=== PATIENT | female | born 1995 | race Caucasian/White ===

== ENCOUNTER 2018-05-14 15:56 | Outpatient (REF) | payer MEDICAID, SELFPAY ==
[2018-05-16 15:46] LABS: Chlamydia Result Negative; GC Result Negative; Specimen Description CERVIX
== END 2018-05-14 16:16 ==
LOC: LBN 15:56
PROVIDERS: PCP Nurse Practitioner Family; Visit Provider Obstetrics & Gynecology Gynecology
DX: Z11.3 Encounter for screening for infections with a predominantly sexual mode of transmission (principal)
CPT/HCPCS: 87491; 87591

== ENCOUNTER 2019-05-27 15:47 | Outpatient (CLI) | payer MEDICARE, MEDICAID, SELFPAY ==
[2019-05-28 15:29] LABS: Chlamydia Result Negative (Negative)
[2019-05-28 15:49] LABS: GC Result Negative (Negative)
== END 2019-05-27 16:07 ==
PROVIDERS: PCP Nurse Practitioner Family; Visit Provider Obstetrics & Gynecology Gynecology
DX: Z11.3 Encounter for screening for infections with a predominantly sexual mode of transmission (principal)
CPT/HCPCS: 87491; 87591

== ENCOUNTER 2020-05-27 16:41 | Outpatient (REF) | payer MEDICARE, MEDICAID, SELFPAY ==
--- NOTE | 2020-05-27 16:30 | PAPFT_PTH ---
PATIENT: Luzmaria Slater LOC: [facility] U#:[id number] AGE/SX: 24/F ROOM: RE05/27/[address]: Radha Francois : 1995 BED: DIS: 05/27/2020 SPEC #: [id number] RECD: 05/27/20 18:05 STATUS: JAYLIN REFarzana #: [id number] JACOB: 05/27/20 16:[address]: Radha Francois DEPT: [facility] Cytology RECD BY: Ernestina Grey ENTERED: 05/27/20 18:06 SP TYPE: PAPFT OTHR DR: Vicenta Post, KAYA Tissues: 1 - CX/ENDOCX FOR PAP SMEARS Procedures: PAP THIN PREP/UVM Screening Comments: [id number] ([id number] [facility])
== END 2020-05-27 17:01 ==
LOC: LBN 16:41
PROVIDERS: PCP Nurse Practitioner Family; Visit Provider Obstetrics & Gynecology Gynecology
DX: Z12.4 Encounter for screening for malignant neoplasm of cervix (principal)
CPT/HCPCS: 88142

== ENCOUNTER 2020-05-30 20:51 | Emergency (ER) | payer MEDICARE, MEDICAID, SELFPAY ==
[2020-05-30 21:00] VITALS: BP 125/71; PULSE 76; RESP 16; TEMP 36.1; O2SAT 99
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
[2020-05-30] MEDS: Ibuprofen 600 MG TAB PO (21:14)
--- NOTE | 2020-05-30 21:25 | DI.RAD_ITS ---
EXAM: XR FOOT LT COMPLETE CLINICAL HISTORY: pain s/p trauma. TECHNIQUE: 2D digital imaging was performed. COMPARISON: No exams were available for comparison FINDINGS: BONES: No acute fracture is present. No bony destructive lesion is seen. JOINTS: No dislocation present. SOFT TISSUE: Normal. IMPRESSION: Unremarkable radiographs of the left foot. DATA REPOSITORY: RADIATION DOSE DELIVERED:
--- NOTE | 2020-05-30 21:34 | DI.VRAD_ITS ---
PROCEDURE INFORMATION: Exam: XR Left Foot Complete Exam date and time: 05/30/2020 9:24 PM Age: 24 years old Clinical indication: Injury or trauma; Other: meat dropped out of freezer and fell in foot. ; Blunt trauma; Left; Injury date: 05/30/20 TECHNIQUE: Imaging protocol: XR Left foot. Views: 3 or more views. COMPARISON: No relevant prior studies available. FINDINGS: There is no evidence of fracture. The joint spaces are well maintained. There is no bony destruction. IMPRESSION: No evidence of fracture. Dictated and Authenticated by: Elmo Duff MD. Ordering:AISHA Hi MD
[2020-05-30 21:43] VITALS: BP 125/71; PULSE 76; RESP 16; TEMP 36.1; O2SAT 99
== END 2020-05-30 21:43 | disposition home or self-care (01) ==
PROVIDERS: Emergency Provider Emergency Medicine; PCP Nurse Practitioner Family
DX: S90.122A Contusion of left lesser toe(s) without damage to nail, initial encounter (principal); W20.8XXA Other cause of strike by thrown, projected or falling object, initial encounter
CPT/HCPCS: 99283; 73630

== ENCOUNTER 2020-06-19 02:11 | Outpatient (CLI) | payer MEDICARE, MEDICAID, SELFPAY ==
--- NOTE | 2020-06-19 | DI.CT_ITS ---
EXAM: CT FACIAL WO CLINICAL HISTORY: LT NECK AND LT MASTOID PAIN,ZYGOMATIC ARCH LT SIDE FX,LT ORBIT FX,S02.85XA,. TECHNIQUE: Imaging Protocol: Axial computed tomography images with coronal and sagittal reformatted images were created and reviewed CONTRAST MATERIAL: Noncontrast COMPARISON: CT HEAD FACIALS WO from 03/04/2017 FINDINGS: Facial Bones: There has been previous surgery repair of the left-sided orbital fracture on the previo us exam. There is mild deformity of the orbital floor. There is no evidence of inferior rectus musc le entrapment. The globes appear intact. There are no bony erosions. The sinuses are clear. No ab normalities seen in the visualized portions of the brain. IMPRESSION: Previous surgery for left-sided orbit and maxillary sinus fractures. No acute abnormality. RADIATION DOSE DELIVERED: Total DLP DATA REPOSITORY: All CT scans at this facility are submitted to the National Radiology Data Registry (NRDR) Dose Index Registry (DIR) with the [employer] (ACR). RADIATION OPTIMIZATION: All CT scans at this facility use at least one of these dose optimization te chniques: automated exposure control; mA and/or kV adjustment per patient size (includes targeted exa ms where dose is matched to clinical indication); or iterative reconstruction.
--- NOTE | 2020-06-19 08:09 | DI.CT_ITS ---
EXAM: CT CERVICAL SPINE WO CLINICAL HISTORY: L neck pain and L mastoid pain,ZYGOMATIC FX LT SIDE,LT ORBIT FX,S02.40FS,S0. TECHNIQUE: Imaging Protocol: Axial computed tomography images with coronal and sagittal reformatted images were created and reviewed CONTRAST MATERIAL: Noncontrast COMPARISON: No exams were available for comparison FINDINGS: Bones: No fracture or dislocations are seen. The alignment of the cervical spine is normal including the cervicovertebral junction and cervicothoracic junction. C2-3: Normal. C3-4: Normal. C4-5: Normal. C5-6: Normal. C6-7: Normal. C7-T1: Normal. Soft Tissues: The soft tissues of the neck are unremarkable. No large disk herniations are identified . Parotid, submandibular and thyroid glands are unremarkable. IMPRESSION: Normal CT scan of the cervical spine. RADIATION DOSE DELIVERED: Total DLP DATA REPOSITORY: All CT scans at this facility are submitted to the National Radiology Data Registry (NRDR) Dose Index Registry (DIR) with the [employer] (ACR). RADIATION OPTIMIZATION: All CT scans at this facility use at least one of these dose optimization te chniques: automated exposure control; mA and/or kV adjustment per patient size (includes targeted exa ms where dose is matched to clinical indication); or iterative reconstruction.
== END 2020-06-19 02:31 ==
PROVIDERS: PCP Nurse Practitioner Family; Visit Provider Obstetrics & Gynecology Gynecology
DX: S02.40FS Zygomatic fracture, left side, sequela (principal); M54.2 Cervicalgia; H74.8X2 Other specified disorders of left middle ear and mastoid
CPT/HCPCS: 70486; 72125

== ENCOUNTER 2021-05-20 02:39 | Outpatient (CLI) | payer OTHER, MEDICAID, SELFPAY ==
[2021-05-21 09:23] LABS: Calculated LDL 91 mg/dL (<100); Cholesterol 149 mg/dL (<200); Glucose 101 mg/dL (74-106); HCG Quant, Pregnancy < 1 mIU/mL (1-3); HDL Cholesterol 37 mg/dL (40-60); Triglyceride 109 mg/dL (<150)
== END 2021-05-20 02:40 | disposition home or self-care (01) ==
LOC: LBO 02:40
PROVIDERS: PCP Nurse Practitioner Family; Visit Provider Nurse Practitioner Women's Health
DX: E66.09 Other obesity due to excess calories (principal); Z13.220 Encounter for screening for lipoid disorders; Z13.1 Encounter for screening for diabetes mellitus
CPT/HCPCS: 36415; 80061; 82947; 84702

== ENCOUNTER 2022-05-27 01:19 | Outpatient (CLI) | payer OTHER, MEDICAID, SELFPAY ==
--- OUTSIDE RECORDS SUMMARY | 2022-05-27 01:22 | XMS_ITS | Encounter Summary ---
:1995 Author Organization [facility] [place] [address] Care Team Providers Name Role Phone Vicenta Post KAYA Primary Care Provider Reason for Visit Reason Comments Follow Up Surgery s/p facial fx repair dos 02/09 Encounter Details Date Type Department Care Team Description 04/19/2017 Office Visit Plastic Surgery at Rudolph Orozco MD Closed fracture of orbit with routine he aling, subsequent encounter; [facility] Open fracture of left orbit with routine healing, subsequent encounter; [facility] Open fracture of left zygomatic arch wit h routine healing, subsequent encounter Drive PLASTIC SURGERY [place] [id number] [phone] Social History Tobacco Use Types Packs/Day Years Used Date Smoking Tobacco: Every Day Cigarettes 0.5 Smokeless Tobacco: Never Tobacco Cessation: Ready to Quit: Yes Alcohol Use Standard Drinks/Week Comments No 0 (1 standard drink = 0.6 oz pure alcoho l) Sex Assigned at Date Recorded Not on file documented as of this encounter Progress Notes Rudolph Orozco MD - 04/19/2017 2:45 PM EDT Plastic Surgery Post Op Note Reason for visit: F/U status post procedure Date of surgery: 03/09/17 Procedure(s): Open treatment of a malar fracture through 3 separate approaches with internal fixation of multiple approaches. Open treatment of orbital floor blowout fracture with periorbital approach with delta resorbable plate posterior. Complications: None reported HPI: Pt reports that she is doing ok. She reports some blurry vision but has a prescription for glasses. She denies diplopia. She has no difficulty eating. Examination: Patient is alert, conversant, comfortable, ambulating EOMI. No diplopia. Hardware palpable Resolving ecchymosis Occlusion is stable Malar position symmetric Impression: Luzmaria Slater is a 21 y.o. female who was seen today for follow-up after the above procedure. Please see the operative note for details. We discussed that her nerve pain may take up to 1 year to resolve. She can expect cold intolerance this winter from her resorbable plates. Plan: 1. Follow up Venita GONZALEZ am acting as scribe for Dr. Orozco. All work documented was performed by Dr. Orozco. ???I performed the above scribed service and agree with the accuracy of the note?? Rudolph Orozco MD documented in this encounter Plan of Treatment Not on filedocumented as of this encounter Visit Diagnoses Diagnosis Closed fracture of orbit with routine he aling, subsequent encounter Open fracture of left orbit with routine healing, subsequent encounter Open fracture of left zygomatic arch wit h routine healing, subsequent encounter documented in this encounter Care Teams Senior Java Web Developer Relationship Specialty Start Date End Date Vicenta Post APRN PCP - General Family Medicine 03/07/[address] [place] [address] documented as of this encounter
--- OUTSIDE RECORDS SUMMARY | 2022-05-27 01:22 | XMS_ITS | Encounter Summary ---
:1995 Author Organization [facility] [place] [address] Care Team Providers Name Role Phone SincereEleni tejadakobe Potter APRN Primary Care Provider Reason for Visit Reason Comments Follow Up Surgery s/p facial fx repair dos 02/09 Encounter Details Date Type Department Care Team Description 03/16/2017 [facility] Armida Howe, [place] [address] PLASTIC SURGERY [place] [address] (Wo rk) Social History Tobacco Use Types Packs/Day Years Used Date Smoking Tobacco: Former Cigarettes 0.5 Smokeless Tobacco: Never Comments: quit smoking 01/23 Alcohol Use Standard Drinks/Week Comments No 0 (1 standard drink = 0.6 oz pure alcoho l) Sex Assigned at Date Recorded Not on file documented as of this encounter Patient Instructions Patient InstructionsArmida Howe APRN - 03/16/2017 9:20 AM EDT 1. Follow up: 03/21/[address] Orozco 2. Keep head elevated at all times 3. No smoking 4. Contact our office if you develop any fevers, chills, redness or thick drainage. documented in this encounter Progress Notes Armida Howe APRN - 03/16/2017 9:20 AM EDT Plastic Surgery Post Op Note Reason for visit: F/U status post procedure Date of surgery: 03/09/17 Procedure(s): Open treatment of a malar fracture through 3 separate approaches with internal fixation of multiple approaches. Open treatment of orbital floor blowout fracture with periorbital approach with delta resorbable plate posterior. Complications: None reported HPI: Pt reports that she is doing ok but does report that her bite seems off. She states that she has been spitting up blood. She denies double vision but does report some blurriness when looking out her left eye. Patient reports that she has been smoking since her surgical procedure. Examination: Patient is alert, conversant, comfortable, ambulating EOMI. No diplopia. Infraorbital incision: CDI, healing well. Sutures removed today. Intraoral incision with significant amount of serous drainage. No purulence. No erythema, no evidence of cellulitis. Impression: Luzmaria Slater is a 21 y.o. female who was seen today for follow-up after the above procedure. Please see the operative note for details. She has significant drainage from her intraoral incision. Will monitor closely. Plan: 1. Follow up: 03/21/[address] Orozco 2. Keep head elevated at all times 3. No smoking 4. Contact our office if you develop any fevers, chills, redness or thick drainage. I, Pallavi Cavazos, am acting as scribe for Armida Howe APRN. All work documented was performed by Armida Howe APRN ???I performed the above scribed service and agree with the accuracy of the note?? ARMIDA HOWE APRN documented in this encounter Plan of Treatment Not on filedocumented as of this encounter Visit Diagnoses Diagnosis Surgery follow-up Follow-up examination, following unspeci fied surgery documented in this encounter Care Teams Superintendent Car Construction Relationship Specialty Start Date End Date Vicenta Post APRN PCP - General Family Medicine 03/07/[address] [place] [address] documented as of this encounter
--- OUTSIDE RECORDS SUMMARY | 2022-05-27 01:22 | XMS_ITS | Encounter Summary ---
:1995 Author Organization [facility] [place] [address] Care Team Providers Name Role Phone Dominik Seay MD, Mark Primary Care Provider Reason for Visit Reason Comments Family History Encounter Details Date Type Department Care Team Description 03/06/2014 Office Visit Obstetrics and [facility] [place], Testing of female for genetic disease carrier status (Primary Dx); Gynecology at [facility] Encounter for genetic counseling [facility] [address] [place], [place] OBSTETRICS & [phone] GYNECOLOGY [phone] [place], [place] [address] Social History Tobacco Use Types Packs/Day Years Used Date Smoking Tobacco: Every Day Cigarettes 0.5 Alcohol Use Standard Drinks/Week Comments No 0 (1 standard drink = 0.6 oz pure alcoho l) Sex Assigned at Date Recorded Not on file documented as of this encounter Progress Notes [facility] [place], [place] - 03/06/2014 1:54 PM EDT GENETIC COUNSELING NOTE Luzmaria Slater was referred to the Diagnosis Program by Cornelia Flores CNM. I met with Luzmaria for a 40 minute genetic counseling visit. She was accompanied to the visit by her mother, Maile. Chief Complaint Patient presents with ??? Family History History of Present Complaint Luzmaria reports that the father of her baby, Ryan Georges, is a carrier of alpha-1 antitrypsin deficiency. He was tested at age 14 because his mother had the disorder, but he is unable to locate the report of his results. His mother had COPD and of an infection at age 46. Ryan's maternal unclestacio has alpha-1 antitrypsin deficiency. Past Medical History Diagnosis Date ??? Anxiety Family History Problem (# of Occurrences) Relation (Name,Age of Onset) Anxiety Disorder (1) Mother Asthma (4) Mother, Nephew, Nephew, Nephew Attention Deficit Disorder (1) Father of Baby Emphysema (1) Maternal Grandfather Genetic Disorder (3) Father of Baby: carrier of alpha-1 antitrypsin deficiency, Father of Baby Relative: mother: alpha-1 antitrypsin deficiency, Father of Baby Relative: maternal uncle: alpha-1 antitrypsin deficiency Heart Defect (1) Mother: heart murmur due to congenital heart disease, resolved spontaneously Learning Disorder (1) Mother Mental Illness (2) Maternal Grandfather, Maternal Grandmother Tuberculosis (1) Maternal Grandfather The reported family history was otherwise unremarkable for intellectual disability, congenital anomalies, recurrent loss, or known genetic conditions. A pedigree was obtained and will be scanned into Luzmaria's electronic medical record. Consanguinity is denied. OB History Grav Para Term Abortions TAB SAB Ect Mult Living 1 Patient's last menstrual period was 10/11/2013. Estimated Date of Delivery: 07/23/2014 based on ultrasound dating (9w2d on 2013) Assessment 18 y.o. female currently at 20w1d gestation whose reproductive partner is reported to be of a carrier for alpha-1 antitrypsin deficiency. Discussion Alpha-1 antitrypsin deficiency (AATD) is an autosomal recessive disorder that is characterized by anincreased risk for chronic obstructive pulmonary disease in adults and liver disease in children andadults. Liver abnormalities develop in only a small portion of children with AATD. The most common manifestation of AATD-associated liver disease is jaundice, with hyperbilirubinemia and raised serum aminotransferase levels in the early days and months of life. Individuals with AATD should avoid smoking (both active and passive) and occupations with exposure to environmental pollutants and should minimize their exposure to alcohol. Luzmaria would like to have carrier testing for AATD to determine if her baby is at risk for this disorder. This will be done via targeted mutation analysis for the most common SERPINA1 pathogenic alleles, which are designated as S (mild deficiency) and Z (severe deficiency). If Luzmaria is found to be a carrier of one of these alleles, then we would expect a 25% risk for her baby to have AATD, although obtaining Ryan's previous test results or retesting him would be important for accurate risk assessment. I provided Luzmaria with a brochure from the [employer]. Plan Luzmaria will have her blood drawn for AATD carrier testing today. I will call her when the results are available. documented in this encounter Miscellaneous Notes Miscellaneous - Provider, Scanning - 05/01/2014 2:17 PM EDT Miscellaneous - Provider, Scanning - 05/01/2014 1:14 PM EDT documented in this encounter Plan of Treatment Not on filedocumented as of this encounter Visit Diagnoses Diagnosis Testing of female for genetic disease ca rrier status - Primary Encounter for genetic counseling Genetic counseling documented in this encounter Care Teams Ginseng Farmer Relationship Specialty Start Date End Date Hernandez Lehman MD PCP - General 06/01/10 03/06/17 [place] [address] documented as of this encounter
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
--- OUTSIDE RECORDS SUMMARY | 2022-05-27 01:22 | XMS_ITS | Encounter Summary ---
:1995 [place] [address] Care Team Providers Name Role Phone Eleni Postkobe Potter APRN Primary Care Provider Reason for Visit Auth/Cert Specialty Diagnoses / Procedures Referred By Contact Refer red To Contact Diagnoses Orbital fracture Rudolph Orozco MD Procedures Orbital fracture [facility] PLASTIC SURGERY [place], [place] [address] Phone: Fax: Referral ID Status Reason Start Date Expiration Date Visits Requ ested Visits Authorized [id number] 03/07/2017 1 1 Encounter Details Date Type Department Care Team Description 03/09/2017 Anesthesia Event [facility] Oliverio Amador MD [facility] [place] [address] [facility] at Mookie Holm MD [facility] [place] [address] [facility] [place] [address] Anesthesia Record Procedure Summary Procedure Name Responsible Anesthesia Start Anesthesia Stop Anesthesiologist Time Time OPEN TREATMENT Dayami Amador MD 03/09/17 1558 03/09/17 18 42 COMPLICATED FX(S) MALAR AREA, W/ INT FIX & MULT. APPROACHES (WRVU 16.77) (Left: Face) Events Date Time Event Comment 03/09/2017 1531 1558 AN Verify 1558 Start 1558 An Start Data 1604 An Induction 1607 An Intubation 1627 Anesthesia Ready 1632 Procedure Start [address] 1829 Extubation/LMA Out 1831 an stop data 1842 Recovery or ICU Handoff Patient care was transferred to the destination unit staff after review of the patient's medica l history, current anesthetic/surgi alivia status and plan, according to the Provider Handoff Checklist. Pt to PACU. On 6 L FM. Oxygenating well with 90mm Oral airway in place. VS at baseline. Report to PaCU R N 1842 Stop Name Total Midazolam 2 mg fentaNYL 100 mcg IV Lidocaine 20 mg Propofol 200 mg Rocuronium 50 mg Ondansetron 8 mg Dexamethasone 8 mg Neostigmine 3 mg Glycopyrrolate 0.4 mg Propofol INF 1,135.6 mg Dexmedetomidine 24 mcg ceFAZolin 2 g HYDROmorphone 1.6 mg lactated Ringers infusion 1,000 mL 1,000 mL Agents Name O2 Air N2O Sevoflurane (et) Blood No blood administrations on file. Lines, Drains, and Airways Type Details Placement Removal PIV 03/09/17; 1501; metacarpal 03/09/17 1501 by Bind er, 03/10/17 0939 by vein (top of hand), right; KAYA Kolb, Lorelei Lambert, RN [id number] catheter system; 20 gauge; yesenia IGLESIAS; distraction, intradermal injection; 03/10/17; 0939 ETT Mask Ventilation: Easy (1); 03/09/17 1607 by Geovanni rage, 03/09/17 1829 by ETT Type: Cuffed; ETT Size: Chelsea C Geovannir age, Chelsea C 7.5 mm; Olivas Blade: 2; Notes: Asleep, Stylette, Pre-O2; Attempts: 1; Laryngoscopy Grade: 1; ETT Placement Verified By: Auscultation, Capnometry, Visual; Inserted by: COURTNEY Christianson Incision 03/09/17; 1630; orbital 03/09/17 1630 by 2 1715 by region; 03/07/22 (Connie Mariee, RN Bell, Dierdre L cleanup utility RA#[id number]); 1715 (LDA cleanup utility RA#[id number]) Incision 03/09/17; 1645; gum (intra 03/09/17 1645 by 02/08 03/31 1715 by oral); 03/07/22 (LDA cleanup Connie Hood RN Muller Ramezstella Graf utility RA#[id number]); 1715 (LDA cleanup utility RA#[id number]) documented in this encounter Social History Tobacco Use Types Packs/Day Years Used Date Smoking Tobacco: Former Cigarettes 0.5 Smokeless Tobacco: Never Comments: quit smoking 01/23 Alcohol Use Standard Drinks/Week Comments No 0 (1 standard drink = 0.6 oz pure alcoho l) Sex Assigned at Date Recorded Not on file documented as of this encounter OR Notes Anesthesia Postprocedure Evaluation - Dayami Amador MD - 03/09/2017 7:35 PM EDT [facility] Department of Anesthesiology Post-procedure Note Patient: Luzmaria Slater Procedure Summary Date Anesthesia Start Anesthesia Stop Room / Location 03/09/17 0733 [address] [facility] CT PROCEDURE ROOM / [facility] Procedure Diagnosis Surgeon Responsible Provider OPEN TREATMENT COMPLICATED FX(S) MALAR AREA, W/ INT FIX & MULT. APPROACHES (WRVU 16.77) (Left Face); OPEN TREATMENT OF ORBITAL FLOOR BLOWOUT FX, PERIORBITAL APPROACH, W/ ALLOPLASTIC OR OTHER IMPLANT (WRVU 11.23) (Left Face); OPEN TREATMENT OF ORBITAL FLOOR BLOWOUT FX, PERIORBITAL APPROACH, W/ BONE GRAFT (WRVU 14.7) (Left Face); CANTHOTOMY (WRVU 1.27) (Left Eye) (Orbital fracture) Rudolph Orozco MD Schroeck, Hedwig, MD All Anesthesia Providers: Anesthesiologist: Dayami Amador MD SPARE PARTS CLERK: Daria Smith CRNA Student Nurse Card Player: Chelsea Putnam (1hr) Vitals: BP 128/64 (03/09/171929) Temp 36.7 ??C (98.1 ??F) (03/09/171836) Pulse 100 (03/09/171929) Resp 12 (03/09/171929) SpO2 97 % (03/09/171929) Patient Location: PACU/[facility] Level of Consciousness: Conscious but Sleepy Pain Management: Satisfactory Analgesia PONV: None Cardiovascular Status: At Baseline and Hemodynamically Stable Respiratory Status: Stable Respiratory Status and Supplemental O2 (NC or FM) Postoperative Fluid Status: Intravascular EUvolemia Possible Anesthetic Complications: NONE apparent at time of evaluation Final Primary Anesthesia Type: General (The anesthetic type performed was the same as planned.) Comments: DAYAMI AMADOR MD Anesthesia Preprocedure Evaluation - Dayami Amador MD - 03/08/2017 5:14 PM EDT Pre-Anesthesia Evaluation for: Luzmaria Slater a 21 y.o. female. Procedure(s): OPEN TREATMENT COMPLICATED FX(S) MALAR AREA, W/ INT FIX & MULT. APPROACHES (WRVU 16.77) OPEN TREATMENT OF ORBITAL FLOOR BLOWOUT FX, PERIORBITAL APPROACH, W/ ALLOPLASTIC OR OTHER IMPLANT (WRVU 11.23) OPEN TREATMENT OF ORBITAL FLOOR BLOWOUT FX, PERIORBITAL APPROACH, W/ BONE GRAFT (WRVU 14.7) CANTHOTOMY (WRVU 1.27) Patient Active Problem List Diagnosis ??? Zygomatic fracture ??? Open fracture of left orbit Past Medical History: Diagnosis Date ??? Anxiety No past surgical history on file. Social History Substance Use Topics ??? Smoking status: Former Smoker Packs/day: 0.50 Types: Cigarettes ??? Smokeless tobacco: Never Used Comment: quit smoking 01/23 ??? Alcohol use No History Drug Use No Comment: former marijuana use No Known Allergies Medications: MAR and/or home medications have been reviewed. Physical Exam: There were no vitals filed for this visit. There is no height or weight on file to calculate BMI. Airway Assessment: Mallampati: II TM distance: >3 FB Neck ROM: full Mouth opening somewhat limited by swelling/pain. Can move mandible forward easily. Cardiovascular Assessment: cardiovascular exam normal Pulmonary Assessment: pulmonary exam normal Dental Assessment: - normal exam Misc Assessment: IV access: Peripheral line Anesthesia Plan: ASA 2 general, with a(n) intravenous induction Luzmaria Slater is a 83.7kg 21 y.o. female with a hx significant for anxiety and recent facial trauma with facial fractures involving left ZMC and orbital floor presenting for ORIF with Dr. Orozco: Anesthesia Hx: None on file NPO status: adequate Denies h/o URI/RAD/GERD. Does get motion sick Pt activity level prior to surgery/admission to hospital: METs > 4 Patient declines testing. The largely unknown but potential sequelae of anesthesia on a were discussed including loss and teratogenic effects. Plan is for GA with ETT (oRAE), antiemetics, propofol infusion, standard ASA monitors, and adequate IV access. Region - Other Informed Consent: Anesthetic plan and risks discussed with patient and mother. Plan discussed with SPARE PARTS CLERK and attending. PAT Staff Note documented in this encounter Plan of Treatment Not on filedocumented as of this encounter Visit Diagnoses Not on filedocumented in this encounter Administered Medications Inactive Administered Medications - up to 3 most recent administrations Medication Order MAR Action Action Date Dose Rate Site ceFAZolin (ANCEF) 1g in dextrose 5% Given 03/09/2017 4:15 PM EDT 2 g 50mL PRN, Starting on Kate 03/09/17 at 1615, Until Kate 03/09/17 at 1842, Administer over 30 Minutes, Anesthesia Intra-op dexamethasone (DECADRON) injection Given 03/09/2017 4:20 PM EDT 8 mg PRN, Starting on Kate 03/09/17 at 1620, Until Kate 03/09/17 at 1842, Anesthesia Intra-op, Routine dexmedetomidine (PRECEDEX) injection Given 03/09/2017 4:38 PM EDT 8 mcg PRN, Starting on Kate 03/09/17 at 1612, Until Kate 03/09/17 at 1842, Anesthesia Intra-op, Routine Given 03/09/2017 4:15 PM EDT 8 mcg Given 03/09/2017 4:12 PM EDT 8 mcg fentaNYL 50 mcg/mL multi-dose injection Given 03/09/2017 4:03 PM EDT 50 mcg PRN, Starting on Kate 03/09/17 at 1600, Until Kate 03/09/17 at 1842, Pain, Anesthesia Intra-op, Routine Given 03/09/2017 4:00 PM EDT 50 mcg glycopyrrolate (ROBINUL) multi-dose inje ction Given 03/09/2017 6:06 PM EDT 0.4 mg PRN, Starting on Kate 03/09/17 at 1806, Until Kate 03/09/17 at 1842, Anesthesia Intra-op, Routine HYDROmorphone (DILAUDID) injection Given 03/09/2017 5:27 PM EDT 0.4 mg PRN, Starting on Kate 03/09/17 at 1635, Until Kate 03/09/17 at 1842, Pain, Anesthesia Intra-op, Routine Given 03/09/2017 4:51 PM EDT 0.6 mg Given 03/09/2017 4:35 PM EDT 0.6 mg lactated Ringers infusion 1,000 mL New Bag 03/09/2017 6:14 PM EDT 1,000 mL, at 100 mL/hr, Intravenous, CONTINUOUS, Starting on Kate 03/09/17 at 1500, Until Kate 03/09/17 at 2217, Day of Surgery (Day of Procedure) New Bag 03/09/2017 3:58 PM EDT New Bag 03/09/2017 3:02 PM EDT 1,000 mLs 100 mL/hr lidocaine (PF) (XYLOCAINE) 100 mg/5 mL (2 %) Given 7 4:04 PM EDT 20 mg injection PRN, Starting on Kate 03/09/17 at 1604, Until Kate 03/09/17 at 1842, Anesthesia Intra-op, Routine midazolam (PF) (VERSED) 1 mg/mL multi-dose Given 03/09/2017 3:58 PM EDT 2 mg injection PRN, Starting on Kate 03/09/17 at 1558, Until Kate 03/09/17 at 1842, Sleep, Anesthesia Intra-op, Routine neostigmine (BLOXIVERZ) injection Given 03/09/2017 6:06 PM EDT 3 mg PRN, Starting on Kate 03/09/17 at 1806, Until Kate 03/09/17 at 1842, Anesthesia Intra-op, Routine ondansetron (ZOFRAN) injection Given 03/09/2017 5:45 PM EDT 8 mg PRN, Starting on Kate 03/09/17 at 1745, Until Kate 03/09/17 at 1842, Nausea, Anesthesia Intra-op, Routine propofol (DIPRIVAN) 10 mg/mL bolus injection Given 4:04 PM EDT 200 mg (Anesthesia) PRN, Starting on Kate 03/09/17 at 1604, Until Kate 03/09/17 at 1842, Anesthesia Intra-op propofol (DIPRIVAN) Rate/Dose 03/09/2017 5:50 100 mcg/kg/min 50.1 mL /hr infusion Change PM EDT CONTINUOUS PRN, Starting on Kate 03/09/17 at 1610, Until Kate 03/09/17 at 1842, Anesthesia Intra-op, Routine Rate/Dose Change 03/09/2017 5:31 PM EDT 125 mcg/kg/min 62.6 mL/hr Rate/Dose Change 03/09/2017 5:02 PM EDT 150 mcg/kg/min 75.2 mL/hr rocuronium (ZEMURON) multi-dose injectio n Given 03/09/2017 4:06 PM EDT 50 mg PRN, Starting on Kate 03/09/17 at 1606, Until Kate 03/09/17 at 1842, Anesthesia Intra-op, Routine documented in this encounter Care Teams Manager Building Relationship Specialty Start Date End Date Vicenta Post APRN PCP - General Family Medicine 03/07/17 [facility] [place] [address] documented as of this encounter
--- OUTSIDE RECORDS SUMMARY | 2022-05-27 01:22 | XMS_ITS | Encounter Summary ---
:1995 Author Organization [facility] [place] [address] Care Team Providers Name Role Phone Dominik Seay MD, Mark Primary Care Provider Encounter Details Date Type Department Care Team Description 03/04/2017 Hospital Encounter Radiology [facility] [place] [address] GENERAL SURGERY [phone] [place] [id number] (Wo rk) Social History Tobacco Use Types Packs/Day Years Used Date Smoking Tobacco: Every Day Cigarettes 0.5 Alcohol Use Standard Drinks/Week Comments No 0 (1 standard drink = 0.6 oz pure alcoho l) Sex Assigned at Date Recorded Not on file documented as of this encounter Medications at Time of Discharge Medication Sig Dispensed Refills Start Date End Date busPIRone (BUSPAR) 15 mg Tablet 0 01/08 buPROPion (WELLBUTRIN XL) 300 mg Tablet 0 01/27/2017 Extended Release 24 hr SHASHI FE 1.5/30, 28, 1.5 mg-30 mcg (21)/75 0 03/03/2017 mg (7) Tablet documented as of this encounter Plan of Treatment Not on filedocumented as of this encounter Procedures Procedure Name Priority Date/Time Associated Diagnosis Comme nts FILM LIBRARY Routine 03/04/2017 12:00 AM Pain Results for this STORAGE ONLY CT EDT procedure ar e in HEAD the results section. documented in this encounter Results Film Library- Storage Only CT Head (03/04/2017 12:00 AM EDT) Specimen (Source) Anatomical Location Collection Method / Collectio n Time Received Time / Laterality Volume Narrative RAND - 03/04/2017 7:18 PM EDT This exam is for storage only and is aut o-finalizing. Wolfgang Hicks MD IMG FILM LIBRARY ORDERABLES Performing Organization Address City/State/ZIP Code Phon e Number [place], [place] documented in this encounter Visit Diagnoses Diagnosis Pain Generalized pain documented in this encounter Care Teams Wildlife Ecology Professor Relationship Specialty Start Date End Date Hernandez Lehman MD PCP - General 06/01/10 03/06/17 [address] [place] [address] documented as of this encounter
--- OUTSIDE RECORDS SUMMARY | 2022-05-27 01:22 | XMS_ITS | Encounter Summary ---
:1995 Author Organization [place] [address] Care Team Providers Name Role Phone Dominik Seay MD, Mark Primary Care Provider Reason for Visit Reason Onset Date Comments Results 03/14/2014 Encounter Details Date Type Department Care Team Description 03/14/2014 Telephone Obstetrics and Gynecology at [facility] Betlran navarro, [facility] Results [facility] [place] [place] OBSTETR[facility] [place] [address] [place] [address] [phone] (Wo rk) Social History Tobacco Use Types Packs/Day Years Used Date Smoking Tobacco: Every Day Cigarettes 0.5 Alcohol Use Standard Drinks/Week Comments No 0 (1 standard drink = 0.6 oz pure alcoho l) Sex Assigned at Date Recorded Not on file documented as of this encounter Miscellaneous Notes Telephone Encounter - Bel[place], [place] - 03/14/2014 4:30 PM EDT Genetic Counseling Telephone Note Luzmaria Slater opted for alpha-1 antitrypsin deficiency (AATD) carrier testing because the father of her baby is a known carrier for this disorder. I informed her of the following results by phone today: AATD (SERPINA1) GENOTYPING RESULTS: S ALLELE: NOT DETECTED Z ALLELE: NOT DETECTED The common pathogenic S and Z alleles were not detected by this test. The presence of other less common AATD variants cannot be excluded. Luzmaria's baby is not predicted to be at increased risk for AATD. Her baby has a 50% chance of being a carrier for this disorder based on the father of the baby's reported carrier status. I will send a letter to Luzmaria with a copy of her results. documented in this encounter Plan of Treatment Not on filedocumented as of this encounter Visit Diagnoses Not on filedocumented in this encounter Care Teams Certified Physician Assistant Relationship Specialty Start Date End Date Hernandez Lehman MD PCP - General 06/01/10 03/06/17 [address] [facility] [place] [address] documented as of this encounter
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
--- OUTSIDE RECORDS SUMMARY | 2022-05-27 01:22 | XMS_ITS | Encounter Summary ---
:1995 Author Organization [place] [address] Care Team Providers Name Role Phone Dominik Seay MD, Hernandez Primary Care Provider Encounter Details Date Type Department Care Team Description 03/06/2014 Hospital Encounter Laboratory Rhianna Putnam, Testing of female [facility] for genetic disease [facility] MEDICAL carrier status [facility] [id number] OBSTETRICS & [phone] [place] [address] Social History Tobacco Use Types Packs/Day Years Used Date Smoking Tobacco: Every Day Cigarettes 0.5 Alcohol Use Standard Drinks/Week Comments No 0 (1 standard drink = 0.6 oz pure alcoho l) Sex Assigned at Date Recorded Not on file documented as of this encounter Plan of Treatment Not on filedocumented as of this encounter Procedures Procedure Name Priority Date/Time Associated Diagnosis Comme nts A1AT GENOTYPE Routine 03/06/2014 1:59 PM Testing of female Res ults for this EDT for genetic disease procedur e are in carrier status the results section. A1AT GENOTYPE Routine 03/06/2014 1:59 PM Testing of female PROFILE EDT for genetic disease carrier status [id number] Routine 03/06/2014 1:59 PM Testing of fema le Results for this EDT for genetic disease procedur e are in carrier status the results section. documented in this encounter Results A1AT Genotype (03/06/2014 1:59 PM EDT) Component Value Ref Test Analysis Performed At [facility] Method Time Signature A1AT A1AT (SERPINA1) GENOTYPING RESULTS: JAI Genotype S ALLELE: NOT DETECTED PAYTON COMBS Z ALLELE: NOT DETECTED INTERPRETATION: The absence of both the S and Z alleles in this patient along with a separate test showing normal levels of A1 AT protein (221mg/dL) in this patient? s serum suggest this patient does not have an A1AT deficiency. Although the S and Z alleles were not detected by this test, the presence of other less common A1AT variants cannot be exclud ed. ??These results should be interpreted based on the complete clinical presentation whic h may warrant additional testing and/or a genetic consultation. METHOD: Two regions of interest in the serpin peptidase inhi bitor, clade A (alpha-1 antiproteinase, antitrypsin), member 1 gene (SERPIN A1), commonly alpha-1 anti-trypsin or A1AT) that are known to contain vari ant alleles resulting in the ? S? phenotype ([id number]; [id number]) and the ? Z? phenotype (c. 1096G>A; [id number]) are a mplified and genotyped by two separate PCR assays each containing two primers for amplification a nd two probes for detection the normal and darryl iant alleles. ??Genomic DNA used in this testing was isolated from peripheral blood. LIMITATIONS AND DISCLAIMERS: ??Although unlikely, rare variants or polymorphisms (known or unknown) have the potential to interfere with the performance of this test, producing false negative or false positive results. ??When genotyping results are not consistent with other clinical observa tions or test results, additional testing should be considered. This test was developed and its performance karthik acteristics determined by the Molecular Pathology Laborato ry at [facility]. This test is used for clinical purposes and should not be considered as investig ational or for research purposes. ??It has not been cleared or approved by the U.S. Food and Drug A dministration. However, as a CLIA licensed laboratory, our facility is appr shanna for such high-complexity clinical testing. Comment: [VERIFIED DATE]03.13.14 Verified By:Arpita OLSEN, Jordyn Jewell Pathologist (Electronic Signature) Specimen Anatomical Collection Method Collection Time Receive d Time (Source) Location / / Volume Laterality Blood specimen 03/06/2014 1:59 PM 08/28/2 014 2:11 (specimen) EDT PM EDT Resulting Agency Comment Spec In Lab Rhianna Putnam MD CHEMISTRY ORDERABLES Performing Organization Address City/[facility]/[place]IP [place] [address] CERNER MILLENNIUM (ABNORMAL) A1AT Serum Concentration (03/06/2014 1:59 PM EDT) P athologist Signature A1AT 221 (H) 90 - 200 CERNER mg/dL MILLENNIUM Comment: To convert pfevy-6-ezkuiuzqspd to SI uni t (umol/L), multiply result (mg/dL) by 0.184. Specimen Anatomical Collection Method Collection Time Receive d Time (Source) Location / / Volume Laterality Blood specimen 03/06/2014 1:59 PM 014 2:06 (specimen) EDT PM EDT Resulting Agency Comment Spec In Lab Rhianna Putnam MD CHEMISTRY ORDERABLES Performing Organization Address City/[facility] Code Phon e Number [address] CERNER MILLENNIUM documented in this encounter Visit Diagnoses Diagnosis Testing of female for genetic disease ca rrier status documented in this encounter Care Teams Director [employer] Relationship Specialty Start Date End Date Hernandez Lehman MD PCP - General 06/01/10 03/06/17 [address] [place] [address] documented as of this encounter
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
[2022-05-27 14:22] LABS: Glucose 98 mg/dL (74-106)
[2022-05-30 10:36] LABS: Hepatitis C Ab w Rflx HCV PCR Negative (Negative)
[2022-05-30 11:07] LABS: HIV-1/2 Ag & Ab Screen Negative (Negative)
== END 2022-05-27 01:20 | disposition home or self-care (01) ==
LOC: LBO 01:19
PROVIDERS: PCP Nurse Practitioner Family; Visit Provider Nurse Practitioner Family
DX: Z13.1 Encounter for screening for diabetes mellitus (principal); Z11.4 Encounter for screening for human immunodeficiency virus [HIV]; Z11.59 Encounter for screening for other viral diseases
CPT/HCPCS: 36415; 82947; 86803; 87389

== ENCOUNTER 2022-06-08 16:35 | Outpatient (REF) | payer OTHER, MEDICAID, SELFPAY ==
[2022-06-10 12:15] LABS: COVID-19 RT-PCR UVMMC Result Negative (Negative)
== END 2022-06-08 16:36 | disposition home or self-care (01) ==
LOC: LBN 16:35
PROVIDERS: PCP Nurse Practitioner Family; Visit Provider Physician Assistant Medical
DX: Z20.822 Contact with and (suspected) exposure to COVID-19 (principal); R05.8 Other specified cough
CPT/HCPCS: U0003

== ENCOUNTER 2023-01-18 12:51 | Emergency (ER) | payer OTHER, MEDICAID, SELFPAY ==
[2023-01-18 12:55] VITALS: BP 117/77; PULSE 66; RESP 14; TEMP 36.8; O2SAT 98
--- NOTE | 2023-01-18 13:30 | DI.RAD_ITS ---
Exam(s) XR CERVICAL SP DUMONT TRAUMA 2-3V EXAM: XR CERVICAL SP DUMONT TRAUMA 2-3V CLINICAL HISTORY: pain. TECHNIQUE: 2D digital imaging was performed. COMPARISON: No exams were available for comparison FINDINGS: Three views There is no evidence of fracture, listhesis, nor offset of the spinal laminar line. There is no prev ertebral soft tissue swelling. All the disc spaces exhibit normal height. Facets unremarkable. No facet malalignment. IMPRESSION: No significant radiographic findings on these three views of the cervical spine. DATA REPOSITORY: RADIATION DOSE DELIVERED:
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
[2023-01-18] MEDS: Ketorolac 60 MG/2 ML VIAL IM (14:28)
[2023-01-18] MEDS: Methocarbamol 750 MG TAB PO (14:32)
== END 2023-01-18 15:16 | disposition home or self-care (01) ==
PROVIDERS: Emergency Provider Emergency Medicine; PCP Nurse Practitioner Family
DX: M43.6 Torticollis (principal); F17.210 Nicotine dependence, cigarettes, uncomplicated
CPT/HCPCS: 81025; 96372; 99284; 72040; 99283; J1885

== ENCOUNTER 2023-07-25 04:50 | Outpatient (CLI) | payer OTHER, MEDICAID, SELFPAY ==
[2023-07-25 14:49] LABS: Panorama Kit Sent via Fed Ex
[2023-07-25 15:00] LABS: Abs Immature Grans 0.02 10^3/uL (0.0-0.06); Absolute Basophil Count 0.02 10^3/uL (0.0-0.2); Absolute Eosinophil Count 0.09 10^3/uL (0.0-0.7); Absolute Monocyte Count 0.33 10^3/uL (0.1-0.8); Absolute Neutrophil Count 5.14 10^3/uL (1.2-6.7); Basophils % 0.3; Eosinophils % 1.2; HCT 36.1 % (36.0-46.0); HGB 12.9 g/dL (11.2-15.7); Immature Grans % 0.3; Lymphocytes % 23.3; MCH 29.7 pg (27.0-33.0); MCHC 35.7 % (32.0-36.0); MCV 83 fL (80-95); Monocytes % 4.5; Neutrophils % 70.4; Platelet Count 206 10^3/uL (130-400); RBC 4.34 10^6/uL (3.93-5.22); RDW 12.1 % (11.7-14.6); RDW-SD 35.8 fL
[2023-07-25 15:11] LABS: Glucose,1 Hr (Glucola) 127 mg/dL (80-140)
[2023-07-26 09:34] LABS: Hepatitis B Surface Ag Negative (Negative)
[2023-07-26 10:09] LABS: Hepatitis C Ab w Rflx HCV PCR Negative (Negative)
[2023-07-26 10:27] LABS: HIV-1/2 Ag & Ab Screen Negative (Negative)
[2023-07-26 10:44] LABS: Rubella IgG Ab (UVM) Positive (See Note)
[2023-07-26 12:33] LABS: Varicella IgG Antibody Equivocal (See Note)
[2023-07-27 21:26] LABS: Syphilis IgG w/Reflex Nonreactive (Nonreactive)
== END 2023-07-25 04:51 | disposition home or self-care (01) ==
LOC: LBO 04:50
PROVIDERS: Advanced Practice Midwife; PCP Nurse Practitioner Family; Visit Provider Advanced Practice Midwife
DX: Z34.90 Encounter for supervision of normal pregnancy, unspecified, unspecified trimester
CPT/HCPCS: 36415; 82950; 86787; 86803; 86850; 86900; 86901; 87340; 87389; 85025; 86762; 86780

== ENCOUNTER 2023-07-25 14:33 | Outpatient (REF) | payer OTHER, MEDICAID, SELFPAY ==
--- NOTE | 2023-07-25 14:30 | PAPFT_PTH ---
PATIENT: Luzmaria Slater LOC: N U#:[id number] AGE/SX: 27/F ROOM: RE07/25/[address]: Theresa Ontiveros CNM : 1995 BED: DIS: 07/25/2023 SPEC #: [id number] RECD: 07/25/23 17:52 STATUS: JAYLIN DESAI #: [id number] JACOB: 07/25/23 14:[address]: Theresa Ontiveros DEPT: [facility] Cytology RECD BY: Ernestina Grey ENTERED: 07/25/23 17:52 SP TYPE: PAPFT OTHR DR: Vicenta Post APRN Tissues: 1 - CX/ENDOCX FOR PAP SMEARS Procedures: PAP THIN PREP/[facility] Screening Comments: [id number] (CHLAMYDIA/GC)
[2023-07-25 16:48] LABS: *AMPHETAMINES SCREEN URINE Negative (Negative); *BARBITURATES SCREEN URINE Negative (Negative); *BENZODIAZEPINES SCREEN URINE Negative (Negative); Cannabinoids THC Positive (Negative); Cocaine Screen,Urine Negative (Negative); METHADONE URINE SCREEN Negative (Negative); OPIATES URINE SCREEN Negative (Negative)
[2023-07-25 16:50] LABS: Tricyclic Antidepressants Negative (Negative)
[2023-07-26 12:34] LABS: Chlamydia Result Negative (Negative); GC Result Negative (Negative)
[2023-08-02 21:43] LABS: Fentanyl Interpretation Negative.; Fentanyl by LC-MS/MS Not Detected; Norfentanyl by LC-MS/MS Not Detected
== END 2023-07-25 14:34 | disposition home or self-care (01) ==
LOC: LBN 14:33
PROVIDERS: PCP Nurse Practitioner Family; Visit Provider Advanced Practice Midwife
DX: Z12.4 Encounter for screening for malignant neoplasm of cervix
CPT/HCPCS: 80307; 87491; 87591; 88142; 80354; 87086

== ENCOUNTER → 2023-09-25 04:28 | Outpatient (CLI) | payer OTHER, MEDICAID, SELFPAY ==
--- NOTE | 2023-09-25 08:15 | DI.US_ITS ---
Exam(s) US OB 2-3 TRIMESTER W MOD EXAM: US OB 2-3 TRIMESTER W MOD CLINICAL HISTORY: SURVEY,Z34.91. TECHNIQUE: Transabdominal obstetrical ultrasound performed. COMPARISON: US POCUS EXAM from 07/04/2023 FINDINGS: Number of fetuses: One. position: Variable Placental grade: 1 Placental location: Posterior. No evidence of previa. BIOMETRIC DATA: BPD: 48mm = 20+ 3 weeks HC: 177mm = 20+ 1 weeks AC: 145mm = 19+ 6 weeks FL: 32mm = 20+ 0 weeks Cisterna Magna: 2.5 mm Cerebellum: 1.72 cm EFW: 323 grms 60% Composite Age: 20+ 1 weeks EDC by US: 11 February 2024 Heart Rate: 149BPM Amniotic fluid : Amount of fluid is within normal limits. ANATOMICAL SURVEY: Four-chambered heart: Unremarkable. LVOT: Not well seen RVOT: Unremarkable. Left-sided stomach: Unremarkable. urinary bladder: Unremarkable. Bilateral kidneys: Unremarkable. Three-vessel cord: Unremarkable. Cord insertion: Unremarkable. Posterior fossa:Unremarkable. ventricles: Unremarkable. nose: Unremarkable. lips: Unremarkable. palate: Unremarkable. spine: Not well seen Two arms and two legs: Unremarkable. IMPRESSION: 1. Single live intrauterine with composite age 20 weeks 1 day. 2. Normal anatomic survey. LVOT and spine were not well seen. The patient is scheduled to return 02 October 2023 for additional imaging. DATA REPOSITORY:
== END ==
PROVIDERS: PCP Nurse Practitioner Family; Visit Provider Advanced Practice Midwife
DX: Z34.92 Encounter for supervision of normal pregnancy, unspecified, second trimester (principal); Z3A.20 20 weeks gestation of pregnancy
CPT/HCPCS: 76805

== ENCOUNTER → 2023-10-02 03:53 | Outpatient (CLI) | payer OTHER, MEDICAID, SELFPAY ==
--- NOTE | 2023-10-02 | DI.US_ITS ---
Exam(s) US OB F/U FACIAL/LVOT/RVOT EXAM: US OB F/U FACIAL/LVOT/RVOT CLINICAL HISTORY: FU LVOT, RVOT. COMPARISON: US US OB 2-3 TRIMESTER W MOD from 09/25/2023 TECHNIQUE: Transabdominal obstetrical ultrasound performed. FINDINGS: Sonographic images demonstrate a single intrauterine gestation in variable position. heart rate motion is Dopplered at: 146 bpm. LVOT and spine as well as RVOT were visualized on today's exam. No abnormalities are identifie d. Placenta: Posterior, grade 1. Amniotic fluid volume. Amount of fluid is visual within normal limits. IMPRESSION: Single live intrauterine gestation as above. DATA REPOSITORY:
== END ==
PROVIDERS: PCP Nurse Practitioner Family; Visit Provider Advanced Practice Midwife
DX: Z34.92 Encounter for supervision of normal pregnancy, unspecified, second trimester (principal); Z3A.20 20 weeks gestation of pregnancy
CPT/HCPCS: 76815

== ENCOUNTER 2023-11-27 05:23 | Outpatient (CLI) | payer OTHER, MEDICAID, SELFPAY ==
[2023-11-27 12:33] LABS: HCT 33.6 % (36.0-46.0); HGB 11.5 g/dL (11.2-15.7); MCH 29.9 pg (27.0-33.0); MCHC 34.2 % (32.0-36.0); MCV 87 fL (80-95); MPV 10.8 fL (8.0-11.0); Platelet Count 191 10^3/uL (130-400); RBC 3.85 10^6/uL (3.93-5.22); RDW 13.3 % (11.7-14.6); RDW-SD 41.9 fL; WBC 8.65 10^3/uL (4.4-10.8)
[2023-11-27 12:44] LABS: Glucose,1 Hr (Glucola) 136 mg/dL (80-140)
== END 2023-11-27 05:24 | disposition home or self-care (01) ==
LOC: LBO 05:23
PROVIDERS: PCP Nurse Practitioner Family; Visit Provider Advanced Practice Midwife
DX: Z34.93 Encounter for supervision of normal pregnancy, unspecified, third trimester (principal); Z3A.35 35 weeks gestation of pregnancy
CPT/HCPCS: 36415; 82950; 85027

== ENCOUNTER 2023-12-07 04:16 | Outpatient (CLI) | payer OTHER, MEDICAID, SELFPAY ==
[2023-12-07 10:50] LABS: Glucose 1 Hour 143 mg/dL
[2023-12-07 11:42] LABS: Glucose 3 Hour 67 mg/dL
== END 2023-12-07 04:17 | disposition home or self-care (01) ==
LOC: LBO 04:16
PROVIDERS: Advanced Practice Midwife; PCP Nurse Practitioner Family; Visit Provider Obstetrics & Gynecology
DX: Z34.92 Encounter for supervision of normal pregnancy, unspecified, second trimester (principal); Z3A.28 28 weeks gestation of pregnancy
CPT/HCPCS: 36415; 82951

== ENCOUNTER → 2024-01-05 00:10 | Outpatient (CLI) | payer OTHER, MEDICAID, SELFPAY ==
--- NOTE | 2024-01-05 07:30 | DI.US_ITS ---
Exam(s) US OB DASHAWN WEIGHT EXAM: US OB DASHAWN WEIGHT CLINICAL HISTORY: growth,gest diabetes,O24.419. TECHNIQUE: Transabdominal obstetrical ultrasound performed. COMPARISON: US US OB F/U FACIAL/LVOT/RVOT from 10/02/2023 FINDINGS: Number of fetuses: 1 position: CEPHALIC Placental location: There is a grade 1 posterior placenta. No evidence of previa. BIOMETRIC DATA: BPD: 8.67cm, 35weeks HC: 30.94cm, 34weeks 4days AC: 30.45cm, 34weeks 3days FL: 6.67cm, 34weeks 2days EFW: 2,434.14g, 5lb 6.27oz, 49.3% Composite Age: 34weeks 4days RUIZ: 02/12/2024 Heart Rate: 161bpm Amniotic fluid index: 14.96cm. The largest pocket measures 7.0 cm. IMPRESSION: 1. Single live intrauterine gestation as above. 2. Estimated weight is 2434gms. This is the 49th percentile. 3. Amniotic fluid index is 15 cm. The largest pocket measures 7.0 cm. DATA REPOSITORY:
== END ==
PROVIDERS: PCP Nurse Practitioner Family; Visit Provider Obstetrics & Gynecology
DX: O24.419 Gestational diabetes mellitus in pregnancy, unspecified control (principal)
CPT/HCPCS: 76816

== ENCOUNTER 2024-01-19 12:20 | Outpatient (REF) | payer OTHER, MEDICAID, SELFPAY | END 2024-01-19 12:21 | disposition home or self-care (01) | LOC: LBN 12:20 | PROVIDERS: PCP Nurse Practitioner Family; Visit Provider Obstetrics & Gynecology Gynecology | DX: Z34.93 Encounter for supervision of normal pregnancy, unspecified, third trimester (principal) | CPT/HCPCS: 87081 ==

== ENCOUNTER 2024-02-07 06:00 | Inpatient (IN) | payer OTHER, MEDICAID, SELFPAY ==
[2024-02-07] VITALS (20 sets, daily range): BP systolic 105–127; BP diastolic 53–77; PULSE 67–101; RESP 16–18; TEMP 36.6–37.1; O2SAT 97–99; BMI 42.8
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
[2024-02-07] MEDS: AZITHROMYCIN 500 MG in Normal Saline 250 ML 250 MG IVPB (06:40)
[2024-02-07] MEDS: Lactated Ringers 1,000 ML 125 ML IV (06:41)
[2024-02-07 06:48] LABS: Abs Immature Grans 0.05 10^3/uL (0.0-0.06); Absolute Basophil Count 0.03 10^3/uL (0.0-0.2); Absolute Eosinophil Count 0.15 10^3/uL (0.0-0.7); Absolute Monocyte Count 0.58 10^3/uL (0.1-0.8); Absolute Neutrophil Count 6.69 10^3/uL (1.2-6.7); Basophils % 0.3 %; Eosinophils % 1.5 %; HCT 35.9 % (36.0-46.0); HGB 12.5 g/dL (11.2-15.7); Immature Grans % 0.5 %; MCH 29.8 pg (27.0-33.0); MCHC 34.8 % (32.0-36.0); MCV 86 fL (80-95); MPV 11.3 fL (8.0-11.0); Monocytes % 5.8 %; Neutrophils % 66.9 %; Platelet Count 193 10^3/uL (130-400); RDW 13.9 % (11.7-14.6); RDW-SD 42.6 fL
[2024-02-07] MEDS: ceFAZolin 2 GM/50 ML BAG IVPB (07:54)
--- NOTE | 2024-02-07 08:22 | FALL_PTH ---
PATIENT: Luzmaria Slater LOC: OBS U#:[id number] AGE/SX: 28/F ROOM: OBS.301 RE02/07/[address]: Daria Flores MD : 1995 BED: A DIS: 02/09/2024 SPEC #: [id number] RECD: 02/07/24 13:02 STATUS: JAYLIN REQ #: [id number] JACOB: 02/07/24 08:[address]: Daria Flores DEPT: Surgical Specimen RECD BY: Ernestina Grey ENTERED: 02/07/24 13:04 SP TYPE: Fall OTHR DR: Ezekiel Carr DO Tissues: 1 - FALLOPIAN TUBE (STERILIZATION) 2 - FALLOPIAN TUBE (STERILIZATION) Procedures: GROSS AND MICRO LEVEL 2 Comments: [id number]
[2024-02-07] MEDS: Bupivacaine 0.25% Pres-Free 30 ML VIAL (08:46)
[2024-02-07] MEDS: Oxytocin/Normal Saline 30 UNIT/500 ML BAG 334 UNITS IV (09:00)
--- NOTE | 2024-02-07 09:23 | W.PM.OP ---
Date of service: 02/07/24 Time of Service: 08:00 Operative Note Operative Note DATE OF PROCEDURE: 02/07/24 PRE-OP DIAGNOSIS: Prior CS, declines TOLAC, desires permanent sterilization POST-OP DIAGNOSIS: same PROCEDURE: Repeat section, Bilateral salpingectomy SURGEON: Daria Flores ASSISTING SURGEON: Cristy Powers Refer to Anesthesia Record ESTIMATED BLOOD LOSS: 600 PATHOLOGY: other (tubes) COMPLICATIONS: None Patient was transported to: floor Patient's condition: stable Indications: P1 @39wks with 1 prior c section who desires a RCS and bilateral salpingectomy. Findings: Normal appearing uterus, ovaries, tubes. Female . Procedure Description: After informed consent was signed the patient was taken to the operating room. She was given spinal anesthesia, SCDs were placed on her legs and a jamil catheter was introduced into her bladder. The heart rate was checked and was normal. She underwent abdominal and vaginal prep and was draped in the dorsal supine position with a leftward tilt. The patient was tested and spinal anesthesia was found to be adequate. A time out was performed. A skin incision was made with the scalpel and carried down to the underlying layer of fascia with blunt dissection. The fascia was incised on either side of the midline and the fascial incision extended laterally with a combination of sharp and blunt dissection. The inferior edge of the fascia was grasped with hang clamps and tented up and dissected down with a combination of sharp and blunt dissection. Then the superior edge of the fascial incision was grasped with hang clamps and tented up and dissected down with a combination of sharp and blunt dissection. The rectus muscles were in the midline and the peritoneum was entered bluntly. The peritoneal incision was extended laterally with blunt dissection. The bladder blade was inserted. A transverse incision was made in the lower uterine segment with the scalpel. The incision was extended superiorly and inferiorly with blunt pressure. The infants head delivered with fundal pressure followed by the shoulders and the rest of the body. The cord was milked toward the baby and after 1min it was clamped x2 and cut. The baby was handed to the cardiac monitor technician. A segment of cord was clamped if needed for cord gasses and cord blood was collected. The placenta delivered with fundal massage and gentle cord traction and appeared to be intact. The uterus was exteriorized and cleared of clots and debris. The uterine incision was closed with 0-vicryl in a running locked fashion with a second layer of suture imbricating the first. Good hemostasis was noted. The uterus was placed back into the abdominal cavity. Clots were cleared from the peritoneal cavity with lap sponges. The incision was inspected once again and good hemostasis was noted. There was good hemostasis of the rectus muscles. The fascia was closed with 0-vicryl in a running unlocked fashion. The subcuticular layer was irrigated and closed with interrupted sutures of 3-0 vicryl. The skin was closed with 4-0 vicryl in a running subcuticular fashion. The skin was injected with bupivocaine along the length of the incision The incision was cleaned. Mastisol and steristrips were placed. A dressing was placed. The fundus was palpated to be firm. The patient was moved to the stretcher and taken to the recovery room in stable condition.
--- NOTE | 2024-02-07 09:50 | W.ANESPOSTOP ---
Postoperative Evaluation Date, Time and Location Date Performed: 02/07/24 Time Performed: 09:09 Patient Location: Day Surgery Unit Vital Signs Most Recent Imported Vital Signs: Most Recent Vital Signs Temp Pulse Resp BP Pulse Ox 36.6 C 72 18 121/77 97 02/07/24 06:21 02/07/24 09:48 02/07/24 06:21 02/07/24 09:48 02/07/24 06:25 Pain Score Most Recent Pain Score: reported no pain Assessment Mental Status: Awake (Alert & Oriented to Patient Baseline) Airway and Respiratory Function: Patent airway with normal (patient baseline) respiratory exam Cardiovascular Function: Hemodynamically Stable Hydration Status: Adequately Hydrated Nausea & Vomiting: No Nausea or Vomiting Pain: Pt. Denies Any Pain Peripheral Nerve Block: Regional nerve block not resolved at time of post operative discharge (Spinal appropriately resolving)
[2024-02-07] MEDS: Ketorolac 30 MG/ML VIAL IVP ×3 (10:16→22:11)
[2024-02-07] MEDS: Normal Saline Flush 10 ML SYR IVP ×3 (15:57→22:12)
[2024-02-08] VITALS (12 sets, daily range): BP systolic 105–122; BP diastolic 51–65; PULSE 64–88; RESP 16–18; TEMP 36.5–36.7; O2SAT 98–100
[2024-02-08] MEDS: Normal Saline Flush 10 ML SYR IVP (04:13)
[2024-02-08] MEDS: Ketorolac 30 MG/ML VIAL IVP (04:13)
[2024-02-08] MEDS: Acetaminophen 325 MG TAB 650 MG PO ×3 (07:49→19:52)
[2024-02-08] MEDS: Docusate Sodium 100 MG CAP PO (07:49)
[2024-02-08] MEDS: Ibuprofen 600 MG TAB PO ×3 (07:50→19:52)
--- NOTE | 2024-02-08 08:08 | W.PM.OBPNV1 ---
Date of service: 02/08/24 Time of Service: 08:08 Assessment and Plan Assessment and plan (1) Status post repeat low transverse section: Status: Acute Assessment and plan: Postop day #1 status post repeat low-transverse section with bilateral salpingectomy. Doing well. Urinary retention during the evening. Able to void spontaneously. Will continue to monitor. Await a.m. CBC. All questions answered. Routine postoperative and care. (2) Status post tubal ligation at time of delivery, current hospitalization: Status: Acute Subjective Subjective Interval history: Patient seen and examined postoperative day #1 status post repeat section with bilateral salpingectomy. Overall doing well. Some discomfort in the incisional area. She did have urinary retention after removal of her Yoder catheter. She had a straight catheterization x 1 in the middle of the night and was able to void spontaneously at approximately 5 AM for 500 cc of clear yellow urine. CBC was ordered this morning. baby status: Doing well and Strong Bonding Observed Exam Physical Exam Vital signs: Temp Pulse Resp BP Pulse Ox 97.7 F 64 16 110/54 L 100 02/08/24 04:00 02/08/24 04:00 02/08/24 07:30 02/08/24 04:00 02/08/24 04:00 Vital Signs Reviewed: Yes Constitutional Constitutional: no acute distress Respiratory Exam Respiratory Exam: Normal Cardiovascular Exam Cardiovascular Exam: Normal Abdominal Exam Abdomen: Tender Comments: Incision dressed Fundal Exam Fundus: Below Umbilicus Results Hemoglobin/Hematocrit: Hgb 12.5 g/dL (11.2-15.7) 02/07/24 06:20 Hct 35.9 % (36.0-46.0) L 02/07/24 06:20 Abnormal Lab Findings: Abnormal Labs 02/07/24 06:20 Hct 35.9 L MPV 11.3 H
[2024-02-08 10:34] LABS: Abs Immature Grans 0.08 10^3/uL (0.0-0.06); Absolute Basophil Count 0.02 10^3/uL (0.0-0.2); Absolute Lymphocyte Count 2.43 10^3/uL (1.2-3.4); Absolute Neutrophil Count 8.74 10^3/uL (1.2-6.7); Basophils % 0.2 %; Eosinophils % 0.8 %; HCT 30.8 % (36.0-46.0); HGB 10.5 g/dL (11.2-15.7); Immature Grans % 0.7 %; MCH 29.7 pg (27.0-33.0); MCHC 34.1 % (32.0-36.0); MCV 87 fL (80-95); Monocytes % 6.3 %; Platelet Count 160 10^3/uL (130-400); RBC 3.53 10^6/uL (3.93-5.22); RDW-SD 44.2 fL; WBC 12.14 10^3/uL (4.4-10.8)
[2024-02-08 10:35] LABS: Absolute Monocyte Count 0.76 10^3/uL (0.1-0.8)
[2024-02-08] MEDS: Varicella Virus Vaccine (Live) 0.5 ML SC (13:47)
[2024-02-09 00:40] VITALS: BP 120/62; PULSE 88; RESP 17; TEMP 36.7; O2SAT 99
[2024-02-09 03:15] VITALS: BP 118/65; PULSE 82; RESP 17; TEMP 36.6; O2SAT 99
[2024-02-09] MEDS: Ibuprofen 600 MG TAB PO ×2 (03:18→10:13)
[2024-02-09] MEDS: Acetaminophen 325 MG TAB 650 MG PO ×2 (03:18→10:12)
[2024-02-09 07:45] VITALS: BP 115/53; PULSE 66; RESP 16; TEMP 36.4; O2SAT 100
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
== END 2024-02-09 10:50 | disposition home or self-care (01) | DRG 784 ==
PROVIDERS: Obstetrics & Gynecology; Admitting Provider Obstetrics & Gynecology; PCP Family Medicine; Visit Provider Obstetrics & Gynecology
PROC: 10D00Z1 Extraction of Products of Conception, Low, Open Approach (ICD-10-PCS; CPT 59514; principal; 2024-02-07 07:30)
DX: O34.211 Maternal care for low transverse scar from previous cesarean delivery (principal); O99.324 Drug use complicating childbirth; Z37.0 Single live birth; Z3A.39 39 weeks gestation of pregnancy; Z30.2 Encounter for sterilization; N85.8 Other specified noninflammatory disorders of uterus; F12.90 Cannabis use, unspecified, uncomplicated; O99.344 Other mental disorders complicating childbirth; F41.8 Other specified anxiety disorders
CPT/HCPCS: 59514; 58700; 36415; 86850; 86900; 86901; 90716; 85025; 88302; J0131; J0456; J0665; J0690; J1100; J1885; J2274; J2371; J2405; J3010

== ENCOUNTER 2024-06-17 02:17 | Outpatient (CLI) | payer OTHER, MEDICAID, SELFPAY ==
[2024-06-17 11:11] LABS: Abs Immature Grans 0.02 10^3/uL (0.0-0.06); Absolute Basophil Count 0.04 10^3/uL (0.0-0.2); Absolute Eosinophil Count 0.12 10^3/uL (0.0-0.7); Absolute Lymphocyte Count 1.72 10^3/uL (1.2-3.4); Absolute Monocyte Count 0.37 10^3/uL (0.1-0.8); Absolute Neutrophil Count 3.23 10^3/uL (1.2-6.7); Basophils % 0.7 %; Eosinophils % 2.2 %; HCT 39.4 % (36.0-46.0); HGB 13.3 g/dL (11.2-15.7); Immature Grans % 0.4 %; Lymphocytes % 31.3 %; MCH 29.5 pg (27.0-33.0); MCHC 33.8 % (32.0-36.0); MCV 87 fL (80-95); Monocytes % 6.7 %; Neutrophils % 58.7 %; Platelet Count 208 10^3/uL (130-400); RBC 4.51 10^6/uL (3.93-5.22); RDW-SD 38.4 fL
[2024-06-17 11:27] LABS: ALT 102 U/L (14-59); AST 55 U/L (15-37); Alkaline Phosphatase 185 U/L (46-116); Bilirubin, Direct 0.2 mg/dL (0.0-0.2); Bilirubin, Total 0.65 mg/dL (0.2-1.0)
== END 2024-06-17 02:18 | disposition home or self-care (01) ==
LOC: LBO 02:17
PROVIDERS: Obstetrics & Gynecology; PCP Family Medicine; Referring Provider Nurse Practitioner Family; Visit Provider Nurse Practitioner Family
DX: Z01.818 Encounter for other preprocedural examination (principal); B35.1 Tinea unguium
CPT/HCPCS: 36415; 80076; 86850; 86900; 86901; 85025

== ENCOUNTER 2024-08-19 02:41 | Outpatient (CLI) | payer MEDICARE, MEDICAID, SELFPAY ==
[2024-08-19 16:17] LABS: ALT 112 U/L (14-59); AST 50 U/L (15-37); Alkaline Phosphatase 205 U/L (46-116); Bilirubin, Direct 0.3 mg/dL (0.0-0.2); Bilirubin, Total 1.05 mg/dL (0.2-1.0); Total Protein 7.2 g/dL (6.4-8.2)
== END 2024-08-19 02:42 | disposition home or self-care (01) ==
LOC: LBO 02:42
PROVIDERS: PCP Family Medicine; Referring Provider Family Medicine; Visit Provider Family Medicine
DX: B35.1 Tinea unguium (principal)
CPT/HCPCS: 36415; 80076

== ENCOUNTER → 2024-12-10 13:31 | Outpatient (BNVA) | payer MEDICARE, MEDICAID, SELFPAY | PROVIDERS: PCP Family Medicine; Referring Provider Family Medicine; Visit Provider Podiatrist | DX: L60.3 Nail dystrophy (principal); B35.1 Tinea unguium; B35.3 Tinea pedis | CPT/HCPCS: 99213 ==

== ENCOUNTER 2025-04-05 15:27 | Emergency (ER) | payer MEDICARE, MEDICAID, SELFPAY ==
[2025-04-05 15:36] VITALS: BP 138/93; PULSE 80; RESP 20; TEMP 36.7; O2SAT 97
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
[2025-04-05 16:52] LABS: Abs Immature Grans 0.02 10^3/uL (0.0-0.06); HCT 38.1 % (36.0-46.0); HGB 13.1 g/dL (11.2-15.7); Immature Grans % 0.3 %; MCH 28.5 pg (27.0-33.0); MCHC 34.4 % (32.0-36.0); MCV 83 fL (80-95); MPV 11.3 fL (8.0-11.0); Platelet Count 194 10^3/uL (130-400); RBC 4.59 10^6/uL (3.93-5.22); RDW 12.3 % (11.7-14.6); RDW-SD 36.8 fL; WBC 7.10 10^3/uL (4.4-10.8)
[2025-04-05 17:02] LABS: Cannabinoids THC Positive (Negative); METHADONE URINE SCREEN Negative (Negative)
[2025-04-05 17:27] LABS: Acetaminophen < 2 ug/mL (10-30); Salicylate < 2.8 mg/dL (<2.8)
[2025-04-05 17:36] LABS: ALT 34 U/L (14-59); AST 19 U/L (15-37); Albumin 4.4 g/dL (3.4-5.0); Alkaline Phosphatase 109 U/L (46-116); Anion Gap 12.0 mmol/L (3-11); BUN 7 mg/dL (7-18); Bilirubin, Total 1.6 mg/dL (0.2-1.0); CO2 26.0 mmol/L (21.0-32.0); Calcium 9.0 mg/dL (8.5-10.1); Chloride 103 mmol/L (98-107); Estimated GFR 101.59 (mL/min/1.73m2); Glucose 99 mg/dL (74-106); Potassium 3.6 mmol/L (3.5-5.1); Sodium 141 mmol/L (136-145); TSH (W/Ref FT4) 1.17 uIU/mL (0.36-3.74); Total Protein 7.2 g/dL (6.4-8.2)
[2025-04-05 18:37] LABS: Glucose Negative (Negative)
[2025-04-05 19:14] LABS: Bilirubin, Direct 0.3 mg/dL (0.0-0.2)
--- NOTE | 2025-04-05 22:13 | PDOC.MHCN_ITS ---
Date of service: 04/05/25 Time of Service: 19:17 PHQ-9 Over the last 2 weeks, how often have you been bothered by any of the following problems? 1. Little interest or pleasure in doing things: more than half the days 2. Feeling down, depressed, or hopeless: nearly every day 3. Trouble falling or staying asleep, or sleeping too much: nearly every day 4. Feeling tired or having little energy: nearly every day 5. Poor appetite or overeating: nearly every day 6. Feeling bad about yourself - or that you are a failure or have let yourself and your family down: nearly every day 7. Trouble concentrating on things, such as reading the newspaper or watching television: nearly every day 8. Moving or speaking so slowly that other people could have noticed? - Or the opposite - being so fidgety or restless that you have been moving around a lot more than usual: more than half the days 9. Thoughts that you would be better off or of hurting yourself in some way: more than half the days Total score: 24 If you checked off any problems, how difficult have these problems made it for you to do your work, take care of things at home, or get along with other people?: very difficult PHQ-9 Results: Positive Source: Developed by Drs. Arsh Hutson, Theresa Sun, Anjel Limon and colleagues, with an educational juan pablo from [employer]. Suicide Severity Rate CSSRS Have you wished you were or wished you could go to sleep and not wake up?: Yes Have you actually had any thoughts of killing yourself?: Yes CSSRS2 Have you been thinking about how you might do this?: Yes Have you had these thoughts and had some intention of acting on them?: No Have you started to work out or worked out the details of how to kill yourself? Do you intend to carry out this plan?: No CSSRS3 Have you ever done anything, started to do anything or prepared to do anything to end your life?: No CSSRS4 Was this within the past three months?: No Screening Score Total Score: 4 Screening: Positive Mental Health Emergency Note Release [facility] release signed:: Yes Reason for Visit The client is unknown to [facility] and this insurance underwriter sales. The client reports that she has never been hospitalized, however reports when she was a child she received outpatient therapy. Tonight the client presents to [facility] with an increase in depression and suicidal ideations. This insurance underwriter sales meets in person with the client at [facility]. In the last 2 weeks has the pt presented for ES prior to today?: No Client Information Client is: New Well Housed: Yes Non Suicidal Self Injury Current: No Safety Risk/Harm to Self or Others Current Ideation to Harm Self or Others: Yes to self. Intent: yes, has intent. Plan: yes,has a plan. History of suicide attempt: No history of suicide attempt reported Risk: Risk: Low Risk Asssessment/Mental Status Appearance: Disheveled Attitude: Cooperative and Guarded Behavior: Unremarkable Speech: Soft Affect: Flat and Cogruent with mood Mood: Sad, Stressed, Depressed and Anxious Thought process: Unremarkable Hallucinations: No Delusions: No Attention: Poor concentration Perception: Not impaired Orientation: Fully orientated Memory: Intact Insight: Fair Judgement: Fair Neurovegetative Symptoms Sleep: Decrease Appetitie: Decrease Interests: Decrease Energy: Decrease Libido: Not applicable Substance Use: Do you use nicotine?: Yes Have you used substances in the last 7 days?: No Additional Issues: Assaultive/Threatening Behavior: No Medical Concerns: No Client engaged in active self harm w/weapon: No Threatening to run away: No Child reported abuse/neglect: No Voluntarily presenting for services: Yes Domestic violence is a concern: No Extreme Psychosis or extreme behavior is present: No Impression The client is a single 29 year old female that resides in [facility] with her boyfriend and two children. The client is currently unemployed stating that she receives SSDI. The client identifies as female and uses she/ her pronouns. All screening tools are completed and all under represented categories are honored during the assessment. The client presents sitting on hospital bed dressed in proper paper hospital attire. The client is cooperative with the assessment, however appears to be guarded and withdrawn at times throughout. This insurance underwriter sales observes the client become tearful as well. The client reports that about 3 weeks ago she stopped receiving her SSDI benefits as she had purchased a car and she states that when you are on SSDI you are only able to have one car. The client states that she could appeal this, however she would have to go before a horse show judge and she is unsure if she wants to do this. The client reports that since this happened she has had an increase in suicidal ideations as well as her anxiety and depression. The client reports very poor appetite that has resulted in a 20 pound weight loss as well as decrease in sleep stating that she has trouble falling asleep and waking up. Based on assessment the client would benefit from inpatient treatment, however is agreeable to least restrictive treatment and engages in safety plan with this insurance underwriter sales with referral for therapy and case management. Plan/Disposition Recommended Disposition: PCP/Office visit and [facility] Services [facility] Services: Therapy. Plan: Pro-active safety plan in place. The client will come to 1111 office at 1p on Sunday 04/08 @ 1p for in person follow-up. The client will call her primary care doctor on Monday to establish an appointment to go over her medications. Aure bella and Jeana reviewed with the client. The clients boyfriend will administer the client her medications. This insurance underwriter sales will complete referral for case management and therapy at [facility]. Person reported agreement to plan: Yes Reports/communication Outcome discussed with: ED/Personnel (Verbal given to ED provider and charge nurse)
== END 2025-04-05 20:22 | disposition home or self-care (01) ==
PROVIDERS: Emergency Provider Nurse Practitioner Family; PCP Family Medicine
DX: F32.A Depression, unspecified (principal); F41.9 Anxiety disorder, unspecified; R17 Unspecified jaundice
CPT/HCPCS: 81025; 00123; 80053; 80307; 96127; 99283; 80329; 81003; 82248; 84443; 85025; 99284

== ENCOUNTER 2025-04-11 15:32 | Outpatient (REF) | payer MEDICARE, MEDICAID, SELFPAY ==
[2025-04-11 14:57] LABS: EPI 027-NAP1-B1 PRESUMPTIVE NEGATIVE
[2025-04-12 11:35] LABS: Campylobacter PCR Negative (Negative); Shiga Toxin PCR Negative (Negative); Shigella/Enteroinvasive Ecoli Negative (Negative)
[2025-04-15 12:48] LABS: Helicobacter pylori Ag, Feces Negative (Negative)
== END 2025-04-11 15:33 | disposition home or self-care (01) ==
LOC: LBN 15:32
PROVIDERS: PCP Family Medicine; Visit Provider Family Medicine
DX: R19.7 Diarrhea, unspecified (principal)
CPT/HCPCS: 87015; 87269; 87272; 87338; 87505; 82272; 83630

== ENCOUNTER 2025-06-04 11:48 | Emergency (ER) | payer MEDICARE, MEDICAID, SELFPAY ==
[2025-06-04 11:50] VITALS: BP 128/69; PULSE 67; RESP 16; TEMP 35.9; O2SAT 99
[2025-06-04 11:57] VITALS: BP 128/69; PULSE 67; RESP 16; TEMP 35.9; O2SAT 99
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
== END 2025-06-04 12:12 | disposition home or self-care (01) ==
PROVIDERS: Emergency Provider Emergency Medicine; PCP Family Medicine
DX: L30.4 Erythema intertrigo (principal); Z59.89 Other problems related to housing and economic circumstances; Z60.8 Other problems related to social environment
CPT/HCPCS: 99281; 99282